=== PATIENT | female | born 1955 | race Caucasian/White ===

== ENCOUNTER → 2016-12-21 | Outpatient (CLI) | payer OTHER ==
[~2016-12-21] MED LIST: ADDERALL 5 MG TA5 M1 PO; ASPIR 8181 MG PO; CALCIUM 600 +1 EAC1 PO; CELEBREX 200 M200 M1 PO; CELEBREX 200 M200 MG PO; COZAAR 25 MG TA25 MG PO; FISH OIL 1,001000 M2 PO; GABAPENTIN 100100 MG PO; GRALISE600 MG PO; HYDROCODONE-AP1 EA11 PO; LEVOXYL88 MCG PO; LUNESTA1 MG PO; MAGNESIUM OXID400 MG PO; MULTI VITAMIN1 EACH PO; NEURONTIN600 MG PO; ROXICODONE5 MG PO; SYNTHROID100 MCG PO; TRAMADOL 50 MG50 MG PO; ZANAFLEX4 MG PO; ZINC30 M1 PO
== END ==
LOC: MRI 12-14 15:05
DX: M25.412 Effusion, left shoulder (principal); M75.22 Bicipital tendinitis, left shoulder; M25.512 Pain in left shoulder

== ENCOUNTER → 2017-03-08 | Outpatient (CLI) | payer OTHER ==
[~2017-03-08] VITALS: Ht 160 cm; Wt 57.2 kg
[~2017-03-08] MED LIST changes: +FLUTICASONE PRO16 GM NS
--- NOTE | ~2017-03-08 | HPC ---
[facility] [place] [address] PAIN MANAGEMENT CONSULTATION Name: SHAR TAPIA Room #: REG [facility].#: [id number] Admission: 03/08/17 Attend Phys: Deny Posey DO Discharge: Date of : 51 Report #: [id number] THIS REPORT FOR: //name// CC: Deny Hanley DATE OF SERVICE: 03/08/2017 DATE OF SERVICE: 03/08/2017 CHIEF COMPLAINT: Left shoulder pain. HISTORY OF PRESENT ILLNESS: As you know, the patient is a pleasant 61-year-old female, who returns today in followup visit, having undergone a cervical surgery with Dr. Celestino White. Despite the surgery, the patient continues to experience neck and the left shoulder pain as well as chronic low back pain. She is placing pain score 4/10. States her pain is exacerbated with movement of her left upper extremity, movement of her head, bending and walking, improves with medications, exercise, heat and cold compresses. She returns today in followup visit for medication management and also requesting the possibility of undergoing a left intraarticular shoulder injection for rotator cuff injury. Other than the recent cervical surgery, the patient has had no changes in her medical history. She has experienced no trauma that may have led to progression of pain. ALLERGIES: No known drug allergies. CURRENT MEDICATIONS: Fluticasone 2 sprays each nostril per day, tramadol 50 mg every 8 hours p.r.n. for pain, tizanidine 4 mg 3 times a day as needed, Gralise 1800 mg p.o. at bedtime, celecoxib 200 mg per day, multivitamin 1 tab per day, levothyroxine 88 mcg per day, zinc gluconate 30 mg once a day, magnesium 400 mg once a day, calcium carbonate 1 tab per day, Adderall 5 mg once a day, Lunesta 1 mg once a day, losartan 25 mg a day. SOCIAL HISTORY: The patient denies tobacco, alcohol or IV illicit drug use. 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 IMAGING: No new imaging available. PHYSICAL EXAMINATION: VITAL SIGNS: Blood pressure 131/86, pulse is 81, respiratory rate 16, unlabored. The patient 99% on room air, height 5 feet 3 inches tall, weight 126 pounds, BMI calculated 22.3. GENERAL: Well-developed, well-nourished, well-hydrated 61-year-old female appearing stated age, placing pain score today at 4/10. [place] [address] PAIN MANAGEMENT CONSULTATION Name: SHAR TAPIA Room #: REG [facility]#: [id number] Admission: 03/08/17 Attend Phys: Deny Posey DO Discharge: Date of : 51 Report #: [id number] HEENT: Normocephalic, atraumatic. Pupils equal, round, reactive to light. Extraocular muscles are intact. There is noted well-healed surgical scar, left anterior neck. EXTREMITIES: Show no clubbing, no cyanosis, no edema. MUSCULOSKELETAL: Palpatory tenderness over the left shoulder, both anterior and posterior. Apprehension test is positive. Active and passive range of motion of the shoulder causes intensification of pain. Pain is also elicited with movement of the cervical spine. ASSESSMENT: 1. Left shoulder pain. 2. Postsurgical pain of the cervical spine. 3. Myofascial pain. 4. Chronic intractable pain. PLAN: 1. The patient has returned today in followup visit requesting a possible intraarticular shoulder injection. She wishes to delay the shoulder injection until just before a trip to [facility] coming up towards the end of this month. She has returned to make an appointment to undergo this procedure. She is hopeful to have the procedure done just 3-4 days prior to her departure. This will provide her with the greatest amount of efficacy while on her trip. We have taken the liberty of scheduling the patient back to our clinic for this injection in approximately 2 weeks. 2. The patient has requested and we will provide refills of her medications. She was given a prescription of celecoxib 200 mg dose 1 tab p.o. b.i.d., #60. I have given 5 refills, 6 months' worth of medication. 3. The patient was provided a refill prescription of tizanidine 4 mg dose 1 tab p.o. at bedtime, #30, two refills. 4. The patient was provided a prescription of tramadol 50 mg dose 1 tablet 3 times a day as needed for pain, #90 releases of today, 4 weeks from today, 8 weeks from today. 5. The patient received a letter from her third libertarian payer indicating that they were no longer willing to cover Gralise despite the fact the patient is provided excellent benefit with no side effects. They have requested the patient return to gabapentin for which the patient had contacted our clinic in the past, indicating that she had severe side effects to the medication. She contacted our clinic after initiating the therapy stating that she was hallucinating, having difficulty with mentation, confusion, severe somnolence, even was taken to the Emergency Department for a possible psychotic episode. After discontinuing the immediate release medication, these resolved. She has been tolerating the Gralise without side effects. They have requested a change. We will make the adjustment today, but have advised the patient that if she begins to experience similar side effects that she has seen in the past with the immediate release gabapentin would be more than willing to return her to the Gralise. I believe this medication should be covered, given the fact [address] [address] PAIN MANAGEMENT CONSULTATION Name: SHAR TAPIA Room #: REG [facility] Debbi#: [id number] Admission: 03/08/17 Attend Phys: Deny Posey DO Discharge: Date of : 51 Report #: [id number] that she has had difficulty with the immediate release formulation in the past. If she does have a second issue with the medication, I would recommend a return to Gralise therapy. The patient was given a prescription of gabapentin 600 mg dose to take 2 tabs p.o. 3 times a day to equate to the current Gralise dose. She was given #180 tablets with 2 refills. The patient will contact the clinic if she has any issues with this medication. 6. We will see the patient back in followup visit in about 1.5-2 weeks for a left intra-articular shoulder injection to address her left shoulder symptoms, which are reportedly a rotator cuff injury. <ELECTRONICALLY SIGNED> By: Deny Posey DO 03/09/17 1128 0723 [id number] Deny Posey, /nt
[2017-03-08 08:29] VITALS: BP 131/86
== END | disposition home or self-care (01) ==
LOC: PAIN 07:10
DX: M25.512 Pain in left shoulder (principal); M79.1 Myalgia; G89.29 Other chronic pain

== ENCOUNTER → 2017-03-23 | Outpatient (CLI) | payer OTHER ==
[~2017-03-23] VITALS: Ht 160 cm; Wt 56.7 kg
[~2017-03-23] MED LIST changes: +COZAAR 25 MG TA25 M1 PO; +ESTRACE1 TUBE VAG
--- NOTE | ~2017-03-23 | HPC ---
[facility] [place] [address] PAIN MANAGEMENT CONSULTATION Name: SHAR TAPIA Room #: REG [facility]#: [id number] Admission: 03/23/17 Attend Phys: Deny Posey DO Discharge: Date of : 51 Report #: [id number] THIS REPORT FOR: //name// CC: Deny Hanley DATE OF SERVICE: 03/23/2017 REFERRING PHYSICIAN: Andrae White MD CHIEF COMPLAINT: Left shoulder pain. HISTORY OF PRESENT ILLNESS: As you know, the patient is a very pleasant 61-year-old female who returns today in followup visit to undergo intraarticular left shoulder injection under fluoroscopic guidance. The patient has been experiencing increasing left shoulder pain for sometime and pain has reached the level where she can no longer tolerate symptoms. She has an MRI of the left shoulder that was obtained on 12/21/2016, which shows supraspinatus tendinosis, mild radicular surface fraying, no full thickness tear, small glenohumeral joint effusion. She returns today to undergo this injection in hopes of improving pain. She is also requesting possible changes off the gabapentin as she is experiencing some side effects of somnolence, decreased mental acuity, disorientation and confusion with the therapy. ALLERGIES: No known drug allergies. CURRENT MEDICATIONS: Fluticasone, tramadol, tizanidine, gabapentin, celecoxib, multivitamin, levothyroxine, zinc gluconate, magnesium, calcium carbonate, Adderall, Lunesta, and losartan. SOCIAL HISTORY: The patient denies tobacco, alcohol, IV or illicit drug use. 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 IMAGING: No new imaging available. PHYSICAL EXAMINATION: VITAL SIGNS: Blood pressure 130/87, pulse 94, respiratory rate 14, unlabored. The patient is 100% on room air, height 5 feet 3 inches tall, weight 125 pounds, BMI calculated 22.1. GENERAL: Well-developed, well-nourished, well-hydrated 61-year-old female appearing stated age, placing pain score today 6/10. HEENT: Normocephalic and atraumatic. Pupils equal, round, reactive to light. Extraocular muscles are intact. EXTREMITIES: Show no clubbing, no cyanosis, no edema. MUSCULOSKELETAL: There is palpatory tenderness again noted over the left [facility] [address] [place] [address] PAIN MANAGEMENT CONSULTATION Name: SHAR TAPIA Room #: REG [facility]#: [id number] Admission: 03/23/17 Attend Phys: Deny Posey DO Discharge: Date of : 51 Report #: [id number] shoulder, both anterior and posterior apprehension test is positive. Active and passive range of motion of the shoulder causes intensification of pain. ASSESSMENT: 1. Left shoulder pain. 2. Post-surgical cervical spine pain. 3. Myofascial pain. 4. Medication intolerance. 5. Chronic intractable pain. PLAN: 1. The patient has returned today in followup visit with concern of left shoulder pain. She has made today's appointment to undergo a left intraarticular shoulder injection under fluoroscopic guidance. The patient has been advised risks and benefits of this procedure. These risks include but are not necessarily limited to bleeding, bruising, infection, worsening pain, no relief of pain, also risk of temporary or permanent muscle weakness, temporary or permanent joint destruction and possible . The patient states understood and wished to proceed. 2. The patient has been voicing concern about the gabapentin therapy. She was previously on Gralise and was tolerating the medication well, having no major side effects. Due to third green party payer restrictions, the patient could no longer receive this medication. We transitioned her to an equivalent dose of immediate release gabapentin. Her side effects have become so great that she had to decrease the dosing and thus we have lost efficacy. The side effects the patient was experiencing was somnolence, decreased mental acuity, disorientation and confusion, mainly in the daytime dosing. She was unable to continue this therapy and thus lost the control of her low back pain from her radicular symptoms. She will make an adjustment today to address this side effect for gabapentin. We will trial the patient on samples of Lyrica. She was given the samples today to initiate the therapy. I have given her 75 mg tablets. She is to take 2 at night initially with the possibility of adding 1 in the morning, 2 at night, making an equivalent dosing of her gabapentin. The patient will contact our clinic to advise us of improvement in symptoms or side effects she could not tolerate. She did very, very well with the Gralise therapy. There may be a need to return to that medication depending on what occurs with the Lyrica therapy. 3. The patient will return to our clinic on an as needed basis. She will contact us about the above trial of Lyrica. DESCRIPTION OF PROCEDURE: Left intraarticular shoulder injection under fluoroscopic guidance. After obtaining written consent, the patient was taken back to fluoroscopy suite, placed in a supine position. The image intensifier was then brought over the left shoulder and the initial imaging was obtained. The area overlying the [address] [address] PAIN MANAGEMENT CONSULTATION Name: SHAR TAPIA [id number] Admission: 03/23/17 Attend Phys: Deny Posey DO Discharge: Date of : 53 Report #: [id number] left shoulder was then prepped and draped in aseptic fashion and marked with a sterile marker. A 27 gauge 1-1/4 inch needle was then used to anesthetize skin and subcutaneous tissue directly overlying the target site of injection. A 25 gauge 2-inch needle was then advanced under fluoroscopic guidance into the left shoulder joint. Once entering the joint, it was noted negative aspiration for heme, 0.4 mL of Omnipaque was injected demonstrating an excellent left shoulder arthrogram. After negative aspiration for heme, 3 mL of a solution containing 1 mL 40 mg per mL, 40 mg total triamcinolone, 2 mL of bupivacaine 0.5% was injected slowly. Needle retracted fdc flushed with 0.5 mL of 0.5% bupivacaine and removed. A sterile bandage was then placed over the injection site. The patient tolerated the procedure well, carefully escorted to the recovery room in stable condition. No apparent complications. After meeting discharge criteria, the patient discharged home. By: 0731 1230 Deny Posey DO /nt
[2017-03-23 08:11] VITALS: BP 130/87
== END | disposition home or self-care (01) ==
LOC: PAIN 07:35
DX: M25.512 Pain in left shoulder (principal); M79.1 Myalgia; G89.29 Other chronic pain; M54.2 Cervicalgia

== ENCOUNTER → 2018-03-15 | Outpatient (CLI) | payer OTHER ==
[~2018-03-15] VITALS: Ht 160 cm; Wt 58.2 kg
[~2018-03-15] MED LIST changes: +CHILDREN'S ASPI81 M1 PO; +LYRICA 75 MG CA75 MG PO
--- NOTE | ~2018-03-15 | HPC ---
[facility] [address] [address] [place] [address] PAIN MANAGEMENT CONSULTATION Name: URI TAPIAEN Misha [id number] Admission: 03/15/18 Attend Phys: Deny Posey DO Discharge: Date of : 53 Report #: [id number] THIS REPORT FOR: //name// CC: ANUM Hanley DATE OF SERVICE: 03/15/2018 CHIEF COMPLAINT: Low back pain, right lower extremity pain and paresthesias. HISTORY OF PRESENT ILLNESS: As you know, the patient is a 62-year-old female who was initially seen by Dr. White for low back pain, right lower extremity pain at our initial visits. That initial visit was 04/16/2015. At that visit, the patient was diagnosed with lumbar radiculopathy secondary to displaced lumbar intervertebral disk and facet arthropathy. We treated the patient conservatively and she has done very well, but unfortunately her symptoms have returned to a level of intolerability. She is now placing pain score somewhere between 4-5/10, states pain is stiff, aching, nagging, deep, numbness and tingling, exacerbated with bending, lifting and driving, improves with exercise and heat. She has been referred back to our clinic by Dr. White to trial epidural injections under fluoroscopic guidance. The patient denies injury or trauma that may have led to symptom development. Currently, she is taking Celebrex 200 mg well once a day and wishes to discuss the possibility of increasing this dose over the short period of time prior to our requested epidural injection. She denies any other changes in medical history at this time except for recent surgery in the cervical area that resolved her neck and arm pain. She returns per the request of Dr. White for epidural injection. ALLERGIES: No known drug allergies. CURRENT MEDICATIONS: Aspirin 81 mg per day, Lyrica 75 mg twice a day, estradiol 1 tube vaginally as needed, tramadol 50 mg 3 times a day as needed, celecoxib 200 mg once a day, fluticasone 2 sprays each nostril per day, multivitamin 1 tab per day, levothyroxine 88 mcg per day, zinc gluconate 1 tab per day, magnesium oxide 400 mg per day, calcium carbonate 1 tab per day, Adderall 5 mg once a day, Lunesta 1 mg p.o. at bedtime, losartan 25 mg per day. SOCIAL HISTORY: The patient denies tobacco, IV or illicit drug use. She admits to approximately 1 alcoholic beverage per week. 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 IMAGING: No new imaging is available. PHYSICAL EXAMINATION: VITAL SIGNS: Blood pressure 114/75, pulse 82, respiratory rate 16, [place] [address] PAIN MANAGEMENT CONSULTATION Name: SHAR TAPIA [facility] [id number] Admission: 03/15/18 Attend Phys: Deny Posey DO Discharge: Date of : 53 Report #: [id number] The patient is 100% on room air. Height 5 feet 3 inch tall, weight 128 pounds, BMI calculated 22.8. GENERAL: Well-developed, well-nourished, well-hydrated 62-year-old female appearing her stated age, placing current pain score at around 4-5/10. HEENT: Normocephalic, atraumatic. Pupils equal, round, reactive to light. Extraocular muscles are intact. Sclerae are nonicteric without injection. NEUROLOGIC: Cranial nerves 2 through 12 grossly intact. Speech is fluent. The patient deemed a good historian. LUNGS: Clear, no wheeze, rhonchi or rales. CARDIOVASCULAR: Regular. No appreciable gallop, no rub. ABDOMEN: Soft, nontender, nondistended. EXTREMITIES: Show no clubbing, no cyanosis, no edema. MUSCULOSKELETAL: The patient does have some palpatory tenderness over the paraspinal musculature of lower lumbar spine, no spinous process tenderness. Seated straight leg raising negative. Supine straight leg raising positive on the right. Alicia's test negative. Modified Gaenslen's positive for axial low back pain. Ankle clonus negative. Babinski is negative. Muscle bulk and tone equal and symmetrical in lower extremities. Gait mildly antalgic favoring right lower extremity over left. ASSESSMENT: 1. Symptomatic lumbar radiculopathy. 2. Lumbosacral spondylosis with radiculopathy. 3. Myofascial pain. 4. Chronic intractable pain. PLAN: 1. The patient has returned today in followup visit with recurrence of low back pain, lower extremity pain with paresthesias. The patient was initially seen in our clinic in 2014 for issues with lumbar radiculopathy. She had done very well with medication management and conservative treatment options and she has not complained of that for some period of time. She recently underwent surgery that changed the issue she had in the cervical region and has resolved her neck pain and upper extremity symptoms. She now has recurrent low back pain, right lower extremity pain for which she has returned per the request of Dr. White to undergo epidural injection. I did advise the patient today third constitution party payer restrictions require that authorization be obtained. We will begin the authorization process immediately, contact the patient once this authorization has been obtained for the L5-S1 epidural injection requested by Dr. White. We will begin the authorization process immediately. We will contact the patient once we have that available. 2. I have been requested that the patient increase her celecoxib over the next couple of days to twice a day, 200 mg in the morning and again 200 mg at dinner time. We will do this only for a short period of time. This should help with ongoing pain issues and will decrease once the patient has undergone the requested epidural injection. [address] [address] PAIN MANAGEMENT CONSULTATION Name: SHAR TAPIA [id number] Admission: 03/15/18 Attend Phys: Deny Posey DO Discharge: Date of : 51 Report #: [id number] 3. Would recommend the patient remain on her Lyrica at current dose. We may ultimately be able to wean the patient off this medication but at this time I am going to continue it as it does help with neuropathic pain the patient is experiencing from her low back. 4. We will see the patient back in followup visit once we have achieved authorization to undergo epidural injection to address lumbar radicular symptoms. The distribution appears to be L5 in its presentation as the patient is experiencing radiating symptoms all the way to the right great toe. We will await authorization to contact the patient to return to undergo the requested epidural injection. <ELECTRONICALLY SIGNED> By: Deny Posey DO 03/21/18 1400 1050 1201 Deny Posey DO /hitesh
[2018-03-15 08:24] VITALS: BP 114/75
== END ==
LOC: PAIN 03-08 10:35
DX: M47.27 Other spondylosis with radiculopathy, lumbosacral region (principal); M47.816 Spondylosis without myelopathy or radiculopathy, lumbar region; M79.1 Myalgia; G89.4 Chronic pain syndrome

== ENCOUNTER → 2018-03-22 | Outpatient (CLI) | payer OTHER ==
[~2018-03-22] VITALS: Ht 160 cm; Wt 58.5 kg
--- NOTE | ~2018-03-22 | HPC ---
[facility] [place] [address] PAIN MANAGEMENT CONSULTATION Name: SHAR TAPIA Room #: [facility].#: [id number] Admission: 03/22/18 Attend Phys: Deny Posey DO Discharge: Date of : 51 Report #: [id number] THIS REPORT FOR: //name// CC: Deny Hanley DATE OF SERVICE: 03/22/2018 REFERRING PHYSICIAN: Andrae White M.D. CHIEF COMPLAINT: Low back pain and right lower extremity pain with paresthesias. HISTORY OF PRESENT ILLNESS: As you know, the patient is a very pleasant 62-year-old female who returns today in followup visit per the request of Dr. White for low back pain and right lower extremity pain. The patient has received precertification to undergo lumbar epidural injection under fluoroscopic guidance to address lumbar radicular symptoms that have reoccurred. The patient returns today having received this authorization to undergo a lumbar epidural injection to address her 4/10 pain involving low back all the way down the left and right leg. She returns today for this epidural injection in hopes of improving pain. ALLERGIES: No known drug allergies. CURRENT MEDICATIONS: Aspirin, Lyrica, estradiol, tramadol, celecoxib, fluticasone, multivitamin, levothyroxine, zinc gluconate, magnesium oxide, calcium carbonate, Adderall, Lunesta and losartan. SOCIAL HISTORY: The patient denies tobacco or IV or illicit drug use. Admits to one alcoholic beverage per week. She is a teacher, working, not receiving workmen's compensation, unaccompanied today. IMAGING DATA: No new imaging available. PHYSICAL EXAMINATION: VITAL SIGNS: Blood pressure 123/83, pulse 80 and respiratory rate 16 and unlabored. The patient is 100% on room air. Height 5 feet 3 inch tall, weight 129 pounds and BMI calculated 22.9. GENERAL: Well-developed, well-nourished, well-hydrated 62-year-old female. She appears her stated age. Pain is rated at 4/10. HEENT: Normocephalic and atraumatic. Pupils equal, round and reactive to light. EXTREMITIES: Show no clubbing, no cyanosis and no edema. MUSCULOSKELETAL: Seated straight leg raising negative. Supine straight leg [address] [address] PAIN MANAGEMENT CONSULTATION Name: SHAR TAPIA Room #: [facility]#: [id number] Admission: 03/22/18 Attend Phys: Deny Posey DO Discharge: Date of : 51 Report #: [id number] raising positive right. Alicia's test negative. Modified Gaenslen's positive for axial low back pain. Ankle clonus negative. Babinski is negative. Gait antalgic favoring right lower extremity. ASSESSMENT: 1. Symptomatic lumbar radiculopathy. 2. Lumbosacral spondylosis with radiculopathy. 3. Myofascial pain. 4. Chronic intractable pain. PLAN: 1. The patient returns today in followup visit to undergo epidural injection under fluoroscopic guidance. She has received authorization to undergo the procedure. We have advised the patient of the risks and the benefits. These risks include but are not necessarily limited to bleeding, bruising, infection, worsening pain, no relief of pain, also risk of temporary or permanent muscle weakness, temporary or permanent paralysis and possible and the patient states understood and wished to proceed. 2. No medication changes made at today's visit. The patient will continue current medical therapy as previously prescribed. 3. The patient will return to our clinic on an as needed basis for the next in the series of epidural injections. PROCEDURE NOTE DESCRIPTION OF PROCEDURE: L5-S1 interlaminar epidural steroid injection under fluoroscopic guidance. After obtaining written consent, the patient was taken back to fluoroscopy suite, placed in prone position with pillow under abdomen to decrease lumbar lordosis. Skin overlying lumbosacral area then prepped and draped in aseptic fashion. Lumbar intervertebral spaces identified by AP fluoroscopy. Skin and subcutaneous tissue overlying target site of injection was anesthetized with 3 mL of 1% lidocaine. A 20-gauge 3-1/2 inch Tuohy needle advanced under fluoroscopic guidance towards the epidural space using a paramedian approach. Epidural space identified using loss of resistance to air technique. After negative aspiration for heme or cerebrospinal fluid, 1 mL of Omnipaque was injected. Lumbar epidurogram was confirmed using both AP and lateral fluoroscopy. After negative aspiration for heme or cerebrospinal fluid, 5 mL of a solution containing 2 mL 40 mg per mL, 80 mg total triamcinolone, 3 mL lidocaine 1% injected slowly. Needle retracted [facility], flushed with 1 mL of 1% lidocaine and removed. Sterile bandage placed over injection site. No new motor deficits present in lower extremity following the procedure. [facility] [address] [place] [address] PAIN MANAGEMENT CONSULTATION Name: SHAR TAPIA Room #: [facility].#: [id number] Admission: 03/22/18 Attend Phys: Deny Posey DO Discharge: Date of : 51 Report #: [id number] The patient tolerated procedure well, carefully escorted to recovery room in stable condition. No apparent complications. After meeting discharge criteria, the patient discharged home. <ELECTRONICALLY SIGNED> By: Deny Posey DO 03/28/18 0750 [id number] Deny Posey DO /nt
[2018-03-22 08:40] VITALS: BP 123/83
== END | disposition home or self-care (01) ==
LOC: PAIN 06:54
DX: M47.27 Other spondylosis with radiculopathy, lumbosacral region (principal); G89.29 Other chronic pain; M79.1 Myalgia; Z79.899 Other long term (current) drug therapy; Z79.82 Long term (current) use of aspirin